=== PATIENT | female | born 1980 | race Caucasian/White ===

== ENCOUNTER 2025-04-18 19:30 | Emergency (ER) | payer BC, OTHER ==
[~2025-04-18] VITALS: Ht 185.4 cm; Wt 68.0 kg
[2025-04-18 22:28] VITALS: TEMP 99.1
[2025-04-18] MEDS ORDERED: IBUPROFEN 600 MG TABLET ONE (23:21)
[2025-04-18] MEDS ORDERED: SULFAMETH/TRIMETH 800/160 MG 1 UDTAB TABLET ONE (23:21)
[2025-04-18] MEDS ORDERED: HYDROCODONE/APAP 5/325MG TABLET ONE ×2 (23:21→23:29)
[2025-04-18] MEDS ORDERED: AMOX/CLAVULANATE 875 MG TABLET ONE (23:22)
[2025-04-18 23:25] LABS: APPEARANCE,URINE CLEAR (CLEAR); BLOOD, URINE NEGATIVE Ery/uL (NEGATIVE); LEUKOCYTE ESTERASE ,URINE TRACE (NEGATIVE); NITRITE, URINE POSITIVE (NEGATIVE); UGLUCOSE TRACE mg/dL (NEGATIVE)
[2025-04-18] MEDS: SULFAMETH/TRIMETH 800/160 MG 1 UDTAB TABLET PO ONE (23:26)
[2025-04-18] MEDS: AMOX/CLAVULANATE 875 MG TABLET PO ONE (23:26)
[2025-04-18] MEDS: IBUPROFEN 600 MG TABLET PO ONE (23:26)
[2025-04-18] MEDS ORDERED: HYDR-3976 GT (23:27)
[2025-04-18] MEDS ORDERED: AMOX-430 PO (23:27)
[2025-04-18] MEDS ORDERED: SULF1TAB48 PO (23:27)
[2025-04-18 23:28] LABS: PREGNANCY TEST URINE QUAL NEGATIVE (NEGATIVE)
[2025-04-18] MEDS: HYDROCODONE/APAP 5/325MG TABLET PO ONE (23:30)
[2025-04-18 23:40] LABS: ADD URINE CULTURE YES
[2025-04-19 00:05] VITALS: BP 144/91; O2SAT 98
== END 2025-04-19 00:06 | disposition home or self-care (01) ==
LOC: ER 19:32
DX: N76.2 Acute vulvitis (principal); Z87.440 Personal history of urinary (tract) infections
CPT/HCPCS: 81001; 84703-TC; 87086-TC